=== PATIENT | female | born 1980 | race Caucasian/White ===

== ENCOUNTER 2017-11-21 14:48 | Emergency (ER) | payer OTHER ==
[~2017-11-21] VITALS: Ht 160 cm; Wt 93.4 kg
[~2017-11-21 14:48] MED LIST: CLONAZEPAM0.5 MG PO; LEVSIN0.125 M1 PO; MERIBIN5 M1 PO; SERTRALINE HYD100 MG PO; TYLENOL #31 TAB PO; ZITHROMAX Z-PA250 MG PO; ZOFRAN ODT4 M1 SL; ZOLOFT100 M1 PO
[2017-11-21 16:05] LABS: ABSOLUTE BASOPHIL COUNT 0 /CUMM (0.0-0.2); ABSOLUTE EOSINOPHIL COUNT 0.3 /CUMM (0.0-0.7); ABSOLUTE LYMPH COUNT 1.7 /CUMM (1.2-3.4); ABSOLUTE MONOCYTE COUNT 0.6 /CUMM (0.10-0.60); BASOPHIL % 0.4 % (0.0-2.0); EOSINOPHIL % 3.5 % (0-5); GRANULOCYTE % 72.6 % (42.2-75.2); HEMATOCRIT 41.3 % (37-47); MEAN CORPUSCULAR HGB 29.9 PG (27.0-31.0); MEAN CORPUSCULAR HGB CONC 34.2 G/DL (33.0-37.0); MEAN CORPUSCULAR VOLUME 87.6 FL (81.0-99.0); MEAN PLATELET VOLUME 7.7 FL (7.4-10.4); PLATELET COUNT 394 /CUMM (130-400); RBC DISTRIBUTION WIDTH 13.1 % (11.5-14.5); RED BLOOD CELL CT 4.72 /CUMM (4.20-5.40); WHITE BLOOD CELL COUNT 9.7 /CUMM (4.8-10.8)
--- NOTE | 2017-11-21 16:27 | ED CARDIAC/CP/PALPITATIONS ---
History of Present Illness General Chief Complaint: Chest Pain Stated Complaint: CHEST PAIN Source: patient Exam Limitations: no limitations Vital Signs & Intake/Output Vital Signs & Intake/Output Vital Signs Date Time Temp Pulse Resp B/P B/P Pulse O2 O2 Flow FiO2 Mean Ox Delivery Rate 11/21 1459 98.3 72 20 117/83 98 Room Air Allergies Coded Allergies: No Known Allergies (05/04/16) Reconcile Medications Biotin (Meribin) (Unknown Strength) CAPSULE (Unknown Dose) PO DAILY SUPPLEMENT (Reported) Clonazepam 0.5 MG TAB 1 TAB PO PRN ANXIETY (Reported) Hyoscyamine (Levsin) 0.125 MG TABLET 1 TAB PO Q4 PRN ABDOMINAL CRAMPS Omeprazole Magnesium (Prilosec Otc) 20 MG TABLET.DR 1 TAB PO DAILY GERD Ondansetron (Zofran Odt) 4 MG TAB.RAPDIS 1 TAB SL TID PRN NAUSEA Sertraline HCl (Zoloft) 100 MG TABLET 1 TAB PO DAILY MENTAL HEALTH (Reported) Triage Note: PT C/O CP THAT RADIATES INTO LEFT SHOULDER, LEFT ARM AND NECK X 3 WEEKS. PT STATES NOT CONSTANT BUT USUALLY COMES AT NIGHT AND SHE FEELS LIKE SHE CAN'T BREATHE. Triage Nurses Notes Reviewed? yes Onset: Gradual Duration: intermittent Timing: recent history Radiation: shoulders : No Patient currently breastfeeds: No HPI: Patient is a 37-year-old female who since emergency room with concerns of a 3 week history of chest pain with radiation to the jaw and left shoulder Patient's had mild dizziness and today had nausea without emesis. Unknown if she is however sexual active Patient can tolerate by mouth Denies any history of DVT PE or contraceptive use leg swelling hemoptysis recent travel or surgery Denies any illicit drug use does smoke cigarettes denies any significant drinking of alcohol. Denies any significant family history of cardiac disease Patient states that the pain has been intermittent currently complains of 2 out of 10 stabbing substernal chest pain Past History Travel History Traveled to [place] past 21 day No Medical History Any Pertinent Medical History? 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 No Review of Systems Review of Systems Constitutional: Reports: no symptoms. EENTM: Reports: no symptoms. Respiratory: Reports: see HPI. Cardiovascular: Reports: see HPI, chest pain. GI: Reports: see HPI. Genitourinary: Reports: no symptoms. Musculoskeletal: Reports: see HPI. Skin: Reports: no symptoms. Neurological/Psychological: Reports: no symptoms. Hematologic/Endocrine: Reports: no symptoms. Immunologic/Allergic: Reports: no symptoms. All Other Systems: Reviewed and Negative Physical Exam Physical Exam General Appearance: no apparent distress, alert, comfortable Head: atraumatic Eyes: Bilateral: normal appearance. Ears, Nose, Throat: normal ENT inspection, hearing grossly normal Neck: normal inspection, no midline tenderness Respiratory: normal breath sounds, chest non-tender, no respiratory distress Cardiovascular: regular rate/rhythm Gastrointestinal: normal bowel sounds, soft, non-tender Neurologic/Psych: no motor/sensory deficits, awake, alert, oriented x 3 Skin: intact, normal color, warm/dry Lymphatic: no anterior cervical maritza Core Measures ACS in differential dx? No CVA/TIA Diagnosis No Sepsis Present: No Sepsis Focused Exam Completed? No Progress Differential Diagnosis: AMI, aortic dissection, atrial fibrillation, cholecystitis, CHF/pulm edema, costochondritis, hyperkalemia, hypovolemia, hyperthyroid, hyperventilation, intracranial hemorrhage, musculoskeletal pain, myocarditis, pancreatitis, pericarditis, pneumonia, pneumothorax, PSVT, pulmonary embolism, PUD/GERD, PVCs/PACs, respiratory failure, rib fracture, sepsis, unstable angina, V-fib/V-Tach, WPW syndrome Plan of Care: Orders Procedure Date/time Status Add-on Test (ER Only) 11/21 1646 Active THYROID STIMULATING HORMONE 11/21 1550 Complete HUMAN BETA HCG SCREEN 11/21 1550 Complete FREE T4 11/21 1550 Complete TROPONIN LEVEL 11/21 1526 Complete COMPREHENSIVE METABOLIC PANEL 11/21 1526 Complete CBC WITHOUT DIFFERENTIAL 11/21 1526 Complete EKG 11/21 1449 Active Laboratory Tests 11/21/17 1550: Anion Gap 12, Estimated GFR > 60, BUN/Creatinine Ratio 15.0, Glucose 157 H, Calcium 9.4, Total Bilirubin 0.4, AST 16, ALT 20, Alkaline Phosphatase 55, Troponin I < 0.01, Total Protein 6.8, Albumin 3.8, Globulin 3.0, Albumin/ Globulin Ratio 1.3, TSH 1.110, Free T4 1.12, Total Beta HCG NEGATIVE, CBC w Diff NO MAN DIFF REQ, RBC 4.72, MCV 87.6, MCH 29.9, MCHC 34.2, RDW 13.1, MPV 7.7, Gran % 72.6, Lymphocytes % 17.7 L, Monocytes % 5.8, Eosinophils % 3.5, Basophils % 0.4, Absolute Granulocytes 7.0 H, Absolute Lymphocytes 1.7, Absolute Monocytes 0.6, Absolute Eosinophils 0.3, Absolute Basophils 0 11/21/17 1527: Total Beta HCG Cancelled Patient upon initial presentation is resting comfortably bedside no apparent distress PERC ZERO HEART SCORE ZERO Patient's EKG troponin blood work and chest x-ray was all unremarkable patient has been rest complaining bedside on her phone denies any mechanism of injury or trauma. Upon discharge patient looks well no apparent distress and will comply with discharge instructions and had no questions Diagnostic Imaging: Viewed by Me: Radiology Read. Radiology Impression: no acute abnormality, no fracture Initial ED EKG: normal intervals, normal p-waves, normal QRS complex, 73 BPM,NSR Comments: PATIENT: ALPHONSE ANNE PRESENT AGE: 37 PATIENT ACCOUNT NO: [id number] : 80 LOCATION: [facility] ORDERING PHYSICIAN: Libra BUSH SERVICE DATE: 11/21/17 EXAM TYPE: RAD - XRY-CHEST XRAY, TWO VIEWS EXAMINATION: XR CHEST CLINICAL INFORMATION: Chest pain. COMPARISON: 09/19/2012 TECHNIQUE: 2 views of the chest were obtained. FINDINGS: The lungs are well-inflated and clear. Trachea is midline in position. No interstitial disease, focal consolidation, mass, pneumothorax or pleural effusion. The cardiomediastinal silhouette is normal in size. The mediastinal, hilar and diaphragmatic contours are normal. No acute osseous abnormality within the visualized thorax. The examined upper abdomen is unremarkable. IMPRESSION: No acute pulmonary disease. DICTATED BY: Tucker Hobbs MD DATE/TIME DICTATED:11/21/171806 [employer]PA[employer] SERVICE ESTIMATOR:DANIKA Departure Departure Disposition: HOME OR SELF CARE Condition: Stable Clinical Impression Primary Impression: Chest pain Referrals: Yoandy HERNANDEZ,Brenda (PCP/Family) Additional Instructions: As discussed begin Tylenol or Motrin for pain and inflammation. If symptoms worsen return to emergency room. Follow-up with your primary care doctor this week. Please provide them with EKG and blood work provided to you Departure Forms: Customer Survey General Discharge Information Prescriptions: Current Visit Scripts Omeprazole Magnesium (Prilosec Otc) 1 TAB PO DAILY #30 TAB Critical Care Note Critical Care Note Critical Care Time: non-applicable
[2017-11-21] MEDS ORDERED: PRILOSEC OTC20 M1 PO (16:50)
--- NOTE | 2017-11-21 18:12 | RADIOLOGY REPORT ---
EXAMINATION: XR CHEST CLINICAL INFORMATION: Chest pain. COMPARISON: 09/19/2012 TECHNIQUE: 2 views of the chest were obtained. FINDINGS: The lungs are well-inflated and clear. Trachea is midline in position. No interstitial disease, focal consolidation, mass, pneumothorax or pleural effusion. The cardiomediastinal silhouette is normal in size. The mediastinal, hilar and diaphragmatic contours are normal. No acute osseous abnormality within the visualized thorax. The examined upper abdomen is unremarkable. IMPRESSION: No acute pulmonary disease.
[2017-11-21 18:28] VITALS: BP 114/80
== END 2017-11-21 18:29 ==
LOC: ERH 14:48
PROVIDERS: Physician Assistant
DX: R07.9 Chest pain, unspecified (principal)
CPT/HCPCS: 71046; 93005; 93010